=== PATIENT | male | born 1975 | race Caucasian/White ===

== ENCOUNTER 2016-10-12 12:28 | Emergency (ER) | payer BC ==
[~2016-10-12] VITALS: Ht 188 cm; Wt 87.5 kg
[2016-10-12 12:30] VITALS: BP 143/89
== END 2016-10-12 13:33 | disposition home or self-care (01) ==
LOC: ED 12:28
DX: S42.032A Displaced fracture of lateral end of left clavicle, initial encounter for closed fracture (principal); X58.XXXA Exposure to other specified factors, initial encounter; Y93.66 Activity, soccer; Y92.89 Other specified places as the place of occurrence of the external cause; Y99.8 Other external cause status